=== PATIENT | female | born 1930 | race Caucasian/White ===

== ENCOUNTER 2017-08-02 12:47 | Outpatient (RCR) | payer MEDICARE, OTHER ==
[2014-06-02 09:06] VITALS: BMI 27.6
[2017-07-05 13:14] VITALS: BP 127/49
[2017-07-05] MEDS: NS(*) 0.9% 100 ML BAG 100 ML IVPB PRN (13:30)
[2017-07-05 13:45] LABS: PLATELET COUNT, AUTOMATED 255 K/uL (150-450)
[2017-07-05] MEDS: LIDOCAINE/SOD BICARB 8.4% SYR ID PRN (13:46)
[~2017-08-02 12:47] MED LIST: ABAT125S SQ; ABATACEPT 250 MG SDV 750 MG in NS(*) 0.9% 100 ML BAG 100 ML IVPB ONE; ACET500T68 PO; ALL300 PO; ASPI-715 PO; ASPI81TA94 PO; ATE50 PO; ATOR40TA69 PO; BUME0.5T PO; BUME0.5T3 PO; BUPR-472 PO; BUS5 PO; CAL600 PO; CALC-965 PO; CALC1TAB85; CALCITONIN SALMON; CELE-1 PO; CHOL400C10 PO; CIT20 PO; CITA-141 PO; CITA-157 PO; CLOP75TA43 PO; CYA1000 PO; CYAN250L PO; CYCL10TA29 PO; DEXTROSE 5%(*) 100 ML BAG 100 ML IVPB PRN; DUL30 PO; ESC10 PO; EZE10 PO; EZET10TA41 PO; FOL1 PO; GEM600 PO; HYD200 PO; HYDR2TAB74 PO; LEV75 PO; LID5T TP; LISI-368 PO; LISI2.5T60 PO; LOR5 PO; LOR5/325 PO; LORA-630 PO; MELA1TAB15 PO; METF-410 PO; METFORMIN PO; METH2.5T43 PO; METXR500 PO; MIRT-22 PO; MULT-1203 PO; MULT-1335 PO; NIT100 PO; OCU PO; OMEP-125 PO; OMEP-137 PO; OMEP-153 PO; OMEP10CA40 PO; OMEP40CA48 PO; ONDA4TAB97 PO; OXYC5TAB38 PO; PER PO; PHENERGAN; POTA75TA2 PO; PRE20 PO; PRIM50TA42 PO; Polyethylene Glycol PO; RISE150T3 PO; SPIR25TA78 PO; SUC1 PO; TRA50 PO; TRAM-627 PO; VITA1CAP46 PO; osteoporosis med
[2017-08-02 13:13] LABS: PLATELET COUNT, AUTOMATED 282 K/uL (150-450)
[2017-08-02 13:41] VITALS: BP 135/45
[2017-08-02] MEDS: LIDOCAINE/SOD BICARB 8.4% SYR ID PRN (13:53)
[2017-08-02] MEDS: NS(*) 0.9% 100 ML BAG 100 ML IVPB PRN (13:54)
[2017-08-02] MEDS ORDERED: ABATACEPT 250 MG SDV 750 MG in NS(*) 0.9% 100 ML BAG 100 ML IVPB ONE (14:15)
[2017-08-03] MEDS ORDERED: MIRT-22 PO (17:12)
[2017-08-25] MEDS ORDERED: ATOR40TA69 PO ×2 (09:55→09:58)
== END 2017-08-28 ==
LOC: SPU 12:47
PROVIDERS: ATTEND Family Medicine
DX: M06.9 Rheumatoid arthritis, unspecified (principal); R06.00 Dyspnea, unspecified
CPT/HCPCS: 83735; 85025; 85027; 85651; 96365; J0129; J7050; 82040; 82247; 82310; 82374; 82435; 82565; 82947; 84075; 84132; 84155; 84295; 84450; 84460; 84520

== ENCOUNTER 2017-08-29 14:00 | Outpatient (RCR) | payer MEDICARE, OTHER ==
[2014-06-02 09:06] VITALS: BMI 27.6
[2017-06-01 16:02] VITALS: BP 112/60
[2017-06-01 16:04] VITALS: BP 132/64
--- NOTE | 2017-06-01 16:56 | CARDIAC REHAB PLAN OF CARE ---
Physician: Misael HUIZAR Patient is being seen: Won Bose Medical Diagnosis: NSTEMI, Stent x 4 Date of Initial Evaluation: 06/01/2017 SHORT TERM GOALS Short Term Goals Due Date: 07/01/17 Short Term Goals: 86 year old female comes to cardiac rehab after a NSTEMI (Apr 12, 2017) and total of 4 stents placed. Patient medical hx includes type II diabetes, arthritis, right knee replacement. Patient presents as alert and oriented with a resting SPO2 at 90% on room air, and the rn cardiac shows a NSR without ectopy and rates in the 60's. Patient walked on a treadmill for 7 minutes at 1.6 MPH, SPO2 levels dropped to 81% on room air and the rn cardiac showed ST without ectopy and a rate of 103. Short terms goals for the patient are consistency of cardio exercise of at least 150 minutes each week, along with weight resistance exercise at least twice a week. Patient will adjust diet to follow a diabetic and heart healthy diet for meals. Short Term Goals Met: Short Term Goals Not Met Due To: BRANCH CONTROLLER GOALS Human Projectile Goal Due Date: 08/01/17 Usp Goals: exterminator termite goals for the patient are to remain consistent with cardio exercise each week achieving that 150 minute minimum and add in weight resistance at least twice a week. Patient will also remain consistent with healthy nutritional intake limiting sugars and refined carbohydrates. Human Projectile Goals Met: Usp Goals Not Met Due To: PATIENT'S GOALS Patient Goals Due Date: 07/01/17 Patient Goals: Patient goals are to get better, healthier, and be able to remain active. Patient would like to return to a water exercise class. Patient Goals Met: Patient Goals Not Met Due To: Cardiac Rehabilitation Plan of Care Comment: Cardiac rehab staff will monitor, record, and evaluate vitals, ECG, and exercise results to provide the best plan of care throughout the 36 visit phase II program. CR staff will educate and motivate the patient during visits for rehab. KEHINDE
[2017-06-03 16:43] VITALS: BP 122/58
[2017-06-03 16:44] VITALS: BP 122/64
[2017-06-06 16:57] VITALS: BP 130/58
[2017-06-06 16:58] VITALS: BP 100/62
[2017-06-10 16:38] VITALS: BP_SYST 128; BP_SYST 138; BP_DIAS 58; BP_DIAS 60
[2017-06-13 15:50] VITALS: BP 146/58
[2017-06-13 15:51] VITALS: BP 136/60
[2017-06-15 16:35] VITALS: BP 138/54
[2017-06-15 16:36] VITALS: BP 122/58
[2017-06-20 17:03] VITALS: BP 120/58
[2017-06-20 17:05] VITALS: BP 126/58
[2017-06-22 16:23] VITALS: BP 132/60
[2017-06-22 16:24] VITALS: BP 130/60
[2017-06-29 16:26] VITALS: BP_SYST 116; BP_SYST 134; BP_DIAS 52; BP_DIAS 58
[2017-07-01 17:41] VITALS: BP 122/60
[2017-07-01 17:43] VITALS: BP 122/58
--- NOTE | 2017-07-01 17:58 | CARDIAC REHAB PLAN OF CARE ---
Physician: Misael HUIZAR Patient is being seen: Won Bose Medical Diagnosis: NSTEMI, Stent x 4 Date of Initial Evaluation: 06/01/2017 \ SHORT TERM GOALS Short Term Goals Due Date: 08/01/17 Short Term Goals: 86 year old female comes to cardiac rehab after a NSTEMI (Apr 12, 2017) and total of 4 stents placed. Patient medical hx includes type II diabetes, arthritis, right knee replacement. Patient presents as alert and oriented with a resting SPO2 at 90% on room air, and the communications intern shows a NSR without ectopy and rates in the 60's. Patient walked on a treadmill for 7 minutes at 1.6 MPH, SPO2 levels dropped to 81% on room air and the communications intern showed ST without ectopy and a rate of 103. Short terms goals for the patient are consistency of cardio exercise of at least 150 minutes each week, along with weight resistance exercise at least twice a week. Patient will adjust diet to follow a diabetic and heart healthy diet for meals. Short Term Goals Met: Patient has made 10 visits for cardiac rehab and tolerates 35 minutes of cardio exercise in the range of 2.0-2.5 METs, followed by weight resistance exercise. During exercise SPO2 levels are maintained in the 90's on 2 liters of O2 by cannula, and the communications intern shows ST without ectopy and rates of 102-114. Short Term Goals Not Met Due To: DATA DEVELOPER GOALS Childcare Worker Goal Due Date: 08/31/17 Childcare Worker Goals: halfway goals for the patient are to remain consistent in achieving at least 150 minutes of cardio exercise each week and weight resistance exercise at least twice a week. Patient also needs to remain consistent in eating diabetic and heart healthy type foods. Childcare Worker Goals Met: Jail Goals Not Met Due To: PATIENT'S GOALS Patient Goals Due Date: 08/01/17 Patient Goals: Patient goals are to improve cardiac and overall health and to be able to remain active. Patient would like to return to water exercise class. Patient Goals Met: Patient Goals Not Met Due To: Cardiac Rehabilitation Plan of Care Comment: Cardiac rehab staff will continue to monitor, record, and evaluate vitals, ECG, and exercise results to provide the best plan of care for the patient throughout the 36 visit phase II program. CR staff will motivate and educate the patient during visits for rehab. KEHINDE
[2017-07-06 17:18] VITALS: BP 118/56
[2017-07-06 17:19] VITALS: BP 132/58
[2017-07-09 16:22] VITALS: BP_SYST 138; BP_SYST 140; BP_DIAS 60
[2017-07-11 16:18] VITALS: BP_SYST 130; BP_SYST 134; BP_DIAS 56; BP_DIAS 58
[2017-07-15 17:45] VITALS: BP 114/54
[2017-07-15 17:46] VITALS: BP 120/46
[2017-07-18 17:28] VITALS: BP 124/54
[2017-07-18 17:36] VITALS: BP 110/52
[2017-07-22 14:37] VITALS: BP 138/54
[2017-07-22 14:38] VITALS: BP 140/56
[2017-07-25 16:27] VITALS: BP_SYST 128; BP_SYST 130; BP_DIAS 54; BP_DIAS 62
[2017-07-27 16:35] VITALS: BP 140/72
[2017-07-27 16:36] VITALS: BP 138/66
[2017-07-29 16:45] VITALS: BP 112/54
[2017-07-29 16:46] VITALS: BP 117/58
[2017-08-01 16:43] VITALS: BP 138/62
[2017-08-01 16:44] VITALS: BP 132/62
--- NOTE | 2017-08-01 17:06 | CARDIAC REHAB PLAN OF CARE ---
Physician: Misael HUIZAR Patient is being seen: Won Bose Medical Diagnosis: NSTEMI, Stent x 4 Date of Initial Evaluation: June 01, 2017 : SHORT TERM GOALS Short Term Goals Due Date: 08/31/17 Short Term Goals: 87 year old female comes to cardiac rehab after a NSTEMI (Apr 12, 2017) and total of 4 stents placed. Patient medical hx includes type II diabetes, arthritis, right knee replacement. Patient presents as alert and oriented with a resting SPO2 at 90% on room air, and the monitoring manager shows a NSR without ectopy and rates in the 60's. Patient walked on a treadmill for 7 minutes at 1.6 MPH, SPO2 levels dropped to 81% on room air and the monitoring manager showed ST without ectopy and a rate of 103. Short terms goals for the patient are consistency of cardio exercise of at least 150 minutes each week, along with weight resistance exercise at least twice a week. Patient will adjust diet to follow a diabetic and heart healthy diet for meals. Short Term Goals Met: Patient has made 20 visits for cardiac rehab and tolerates 35 minutes of cardio exercise in the range of 2.0-2.5 METs, followed by weight resistance exercise. During exercise SPO2 levels are maintained in the 90's on 2 liters of O2 by cannula, and the monitoring manager shows ST without ectopy and rates of 102-119. Short Term Goals Not Met Due To: COMMUNITY SPORTS COORDINATOR GOALS Correction Goal Due Date: 09/29/17 Rn Nicu Goals: penitentiary goals for the patient are to remain consistent in achieving at least 150 minutes of cardio exercise each week and weight resistance exercise at least twice a week. Patient also needs to remain consistent in eating diabetic and heart healthy type foods. Rn Nicu Goals Met: Patient has increased duration and intensity of exercise. Rn Nicu Goals Not Met Due To: PATIENT'S GOALS Patient Goals Due Date: 08/31/17 Patient Goals: penitentiary goals for the patient are to remain consistent in achieving at least 150 minutes of cardio exercise each week and weight resistance exercise at least twice a week. Patient also needs to remain consistent in eating diabetic and heart healthy type foods. Patient Goals Met: Patient Goals Not Met Due To: Cardiac Rehabilitation Plan of Care Comment: Cardiac rehab staff will continue to monitor, record, and evaluate vitals, ECG, and exercise results to provide the best plan of care for the patient throughout the 36 visit phase II program. CR staff will motivate and educate the patient during visits for rehab. KEHINDE
[2017-08-05 16:32] VITALS: BP_SYST 122; BP_SYST 130; BP_DIAS 56
[2017-08-08 16:27] VITALS: BP 140/60
[2017-08-08 16:28] VITALS: BP 130/58
[2017-08-10 15:25] VITALS: BP 140/56
[2017-08-10 15:26] VITALS: BP 136/60
[2017-08-12 16:40] VITALS: BP 108/48
[2017-08-12 16:41] VITALS: BP 120/60
[2017-08-17 18:07] VITALS: BP_SYST 108; BP_SYST 118; BP_DIAS 58; BP_DIAS 60
[2017-08-19 16:41] VITALS: BP_SYST 118; BP_SYST 132; BP_DIAS 56; BP_DIAS 60
[2017-08-22 15:50] VITALS: BP_SYST 128; BP_SYST 134; BP_DIAS 54; BP_DIAS 58
[2017-08-24 16:45] VITALS: BP 148/60
[2017-08-24 16:46] VITALS: BP 142/58
[2017-08-26 17:16] VITALS: BP 140/58
[2017-08-26 17:17] VITALS: BP 130/60
[~2017-08-29 14:00] MED LIST changes: -ABATACEPT 250 MG SDV 750 MG in NS(*) 0.9% 100 ML BAG 100 ML IVPB ONE; -DEXTROSE 5%(*) 100 ML BAG 100 ML IVPB PRN
[2017-08-29 16:21] VITALS: BP 124/62
[2017-08-29 16:22] VITALS: BP 104/52
== END 2017-08-30 ==
LOC: CARD 14:00
PROVIDERS: ATTEND Family Medicine
DX: I25.2 Old myocardial infarction (principal); Z95.5 Presence of coronary angioplasty implant and graft; E11.9 Type 2 diabetes mellitus without complications; M06.9 Rheumatoid arthritis, unspecified; Z96.651 Presence of right artificial knee joint; M25.551 Pain in right hip
CPT/HCPCS: 93798

== ENCOUNTER → 2017-09-06 | Outpatient (REF) | payer MEDICARE, OTHER ==
[2014-06-02 09:06] VITALS: BMI 27.6
== END ==
LOC: ZZSENDIN 12:00
PROVIDERS: ATTEND Family Medicine
DX: C44.41 Basal cell carcinoma of skin of scalp and neck (principal)
CPT/HCPCS: 88305

== ENCOUNTER 2017-09-21 14:00 | Outpatient (RCR) | payer MEDICARE, OTHER ==
[2014-06-02 09:06] VITALS: BMI 27.6
[2017-08-31 17:28] VITALS: BP 132/58
[2017-08-31 17:30] VITALS: BP 118/70
[2017-09-02 16:32] VITALS: BP 130/50
[2017-09-12 17:39] VITALS: BP 118/58
[2017-09-12 17:40] VITALS: BP 110/54
[2017-09-14 16:50] VITALS: BP 128/62
[2017-09-14 16:51] VITALS: BP 124/62
[2017-09-19 15:26] VITALS: BP 132/52
[2017-09-19 15:28] VITALS: BP 124/60
[2017-09-21 16:43] VITALS: BP 132/70
[2017-09-21 16:44] VITALS: BP 126/66
== END 2017-09-21 18:00 | disposition home or self-care (01) ==
LOC: CARD 14:00
PROVIDERS: ATTEND Family Medicine
DX: I25.2 Old myocardial infarction (principal); Z95.5 Presence of coronary angioplasty implant and graft; E11.9 Type 2 diabetes mellitus without complications; M06.9 Rheumatoid arthritis, unspecified; Z96.651 Presence of right artificial knee joint; M25.551 Pain in right hip
CPT/HCPCS: 93798

== ENCOUNTER → 2017-09-27 | Outpatient (REF) | payer MEDICARE, OTHER ==
[2014-06-02 09:06] VITALS: BMI 27.6
== END ==
LOC: ZZSENDIN 12:00
PROVIDERS: ATTEND Family Medicine
DX: C44.41 Basal cell carcinoma of skin of scalp and neck (principal)
CPT/HCPCS: 88305

== ENCOUNTER 2017-11-22 12:41 | Outpatient (RCR) | payer MEDICARE, OTHER ==
[2014-06-02 09:06] VITALS: BMI 27.6
[2017-08-30 13:02] VITALS: BP 153/52
[2017-08-30] MEDS: LIDOCAINE/SOD BICARB 8.4% SYR ID PRN (13:15)
[2017-08-30] MEDS: NS(*) 0.9% 100 ML BAG 100 ML IVPB PRN (13:18)
[2017-08-30 13:28] LABS: PLATELET COUNT, AUTOMATED 283 K/uL (150-450)
[2017-09-27 12:53] VITALS: BP 152/57
[2017-09-27 13:10] LABS: PLATELET COUNT, AUTOMATED 278 K/uL (150-450)
[2017-10-25 13:27] VITALS: BP 125/58
[2017-10-25 13:36] LABS: PLATELET COUNT, AUTOMATED 244 K/uL (150-450)
[2017-10-25 14:19] VITALS: BP 142/93
[~2017-11-22 12:41] MED LIST changes: +ABATACEPT 250 MG SDV 750 MG in NS(*) 0.9% 100 ML BAG 100 ML IVPB ONE; +DEXTROSE 5%(*) 100 ML BAG 100 ML IVPB PRN; -METF-410 PO; +METF-411 PO
[2017-11-22 12:46] VITALS: BP 139/56
[2017-11-22] MEDS ORDERED: ABATACEPT 250 MG SDV 750 MG in NS(*) 0.9% 100 ML BAG 100 ML IVPB ONE (12:55)
[2017-11-22] MEDS: LIDOCAINE/SOD BICARB 8.4% SYR ID PRN (13:00)
[2017-11-22] MEDS: NS(*) 0.9% 100 ML BAG 100 ML IVPB PRN (13:00)
[2017-11-22 13:06] LABS: PLATELET COUNT, AUTOMATED 223 K/uL (150-450)
== END 2017-11-27 ==
LOC: SPU 12:41
PROVIDERS: ATTEND Family Medicine
DX: M06.9 Rheumatoid arthritis, unspecified (principal); R06.00 Dyspnea, unspecified
CPT/HCPCS: 85025; 85651; 96365; 96366; J0129; J7050; 82040; 82247; 82310; 82374; 82435; 82565; 82947; 84075; 84132; 84155; 84295; 84450; 84460; 84520; 88305

== ENCOUNTER → 2017-12-08 | Outpatient (CLI) | payer MEDICARE, OTHER ==
[2014-06-02 09:06] VITALS: BMI 27.6
[~2017-12-08] MED LIST changes: -ABATACEPT 250 MG SDV 750 MG in NS(*) 0.9% 100 ML BAG 100 ML IVPB ONE; -DEXTROSE 5%(*) 100 ML BAG 100 ML IVPB PRN
--- NOTE | 2017-12-08 14:18 | RADIOLOGY IMAGING REPORT ---
FACILITY: [facility] PATIENT NAME: Mindy Goldstein : 1930 MR: [id number] V: [id number] EXAM DATE: ORDERING PHYSICIAN: DUKE PHELPS TECHNOLOGIST: Location: [facility] Patient: Mindy Goldstein : 1930 Visit/Account:[id number] Date of Sevice: 12/08/2017 DEXA Scan Clinical history: Postmenopausal osteoporosis. Comparison: DEXA scan from 11/05/2014. LUMBAR SPINE: The bone mineral density (BMD) measured from L1-L4 correlates with a Z-score of 3.8 and a T-score of 2.1 which is Normal as defined by the World Health Organization. The corresponding risk of fracture in the lumbar spine is Not increased compared with a young adult reference population. This value mcgee s increase by 0.1 % since the prior study. More than 5% change is considered significant. HIP: Bone mineral density (BMD) measured in the LEFT total hip region correlates with a Z-score 1.7 and a T-score of -0.5 which is normal as defined by the World Health Organization. The corresponding risk of fracture in the hip is 1-2 t imes increased compared to a young adult reference population. This value has decrease by 0.3 % since the prior study. More than 5% change is considered significant. T score left femoral neck -1 Bone mineral density (BMD) measured in the Femoral Neck region measures 0.895 g/cm?. IMPRESSION: 1. Lumbar spine: Normal. There has been 0.1% increase in the bone mineral density since the previou s exam. 2. Left Total Hip: Normal. There has been 0.3% decrease in the bone mineral density since the previ ous exam. 3. Femoral Neck: Bone Mineral Density is 0.895 g/cm? The next DEXA scan of this patient should include the following sites: L1-L4 and the left hip. FRAX? WHO Fracture Risk Assessment Tool link: <http://www.shef.ac.uk/FRAX/tool.jsp?locationValue=9> PLEASE NOTE: 1) The World Health Organization defines low BMD as follows: T-score Normal > -1 Osteopenia < -1 and > -2.5 Osteoporosis < -2.5 without fractures Established osteoporosis < -2.5 with fractures 2) In general, you may wish to consider: Diagnosis Treatment Follow-up DEXA Normal BMD Prevention 2-3 years Osteopenia Prevention/therapy 1-2 years Osteoporosis Therapy Yearly 3) Fracture risk estimated from the T-score is more accurate for vertebral fractures (often spontane ous) than for hip fractures. Report Dictated By: Alysia Doherty MD at 12/08/2017 2:13 PM Report E-Signed By: Alysia Doherty MD at 12/08/2017 2:15 PM WSN:[id number]
== END ==
LOC: RAD 13:05
PROVIDERS: ATTEND Internal Medicine Rheumatology
DX: Z13.820 Encounter for screening for osteoporosis (principal); M81.0 Age-related osteoporosis without current pathological fracture
CPT/HCPCS: 77080

== ENCOUNTER 2018-02-27 17:56 | Emergency (ER) | payer MEDICARE, OTHER ==
[2014-06-02 09:06] VITALS: Wt 69.4 kg
--- NOTE | 2018-02-27 18:16 | ER Report ---
History and Physical Time Seen By MD: 18:11 HPI/ROS CHIEF COMPLAINT: Chest pain HISTORY OF PRESENT ILLNESS: This is an 87-year-old female who presents to the emergency department with her daughter for chest pain. Patient had an [place] approximately 10 months ago had 4 stents placed and has been following Dr. Barbosa in [place]. Patient states that the day at about 2:00 she developed some chest discomfort which radiated up into her neck bilaterally. She also had a rapid heart rate which he checked it at home was in the 140s, she called her daughter and her daughter picked her up and her daughter also stated that her heart rate by pulse oximetry and palpation was fluctuating between 150's-160's. No nausea or vomiting, no shortness of breath no fevers or chills. REVIEW OF SYSTEMS: Constitutional: No fever, no chills. Eyes: No discharge. ENT: No sore throat. Cardiovascular: As above. Respiratory: No cough, no shortness of breath. Gastrointestinal: No abdominal pain, no vomiting. Genitourinary: No hematuria. Musculoskeletal: No back pain. Skin: No rashes. Neurological: No headache. Allergies: Coded Allergies: Penicillins (Verified Allergy, Mild, 02/27/18) Sulfa (Sulfonamide Antibiotics) (Verified Allergy, Mild, 02/27/18) codeine (Verified Allergy, Mild, 02/27/18) iodine (Verified Allergy, Mild, 02/27/18) Uncoded Allergies: NARCOTICS (Adverse Reaction, Unknown, 02/27/18) Home Meds Active Scripts Atorvastatin Calcium (ATORVASTATIN CALCIUM) 40 Mg Tablet, 1 TAB PO HS, #30 TAB Prov:ADRIANA DERAS MD 08/25/17 Mirtazapine (MIRTAZAPINE) 15 Mg Tablet, 0.25 TAB PO QHS for 90 Days, #45 TAB Prov:ADRIANA DERAS MD 08/03/17 Lisinopril (LISINOPRIL) 2.5 Mg Tablet, 1 TAB PO DAILY, #90 TAB 4 Refills Prov:ADRIANA DERAS MD 04/04/17 Reported Medications Cyanocobalamin (Vitamin B-12) (VITAMIN B-12) 1,000 Mcg Tablet, 1 TAB PO DAILY 08/02/17 Clopidogrel Bisulfate (PLAVIX) 75 Mg Tablet, 1 TAB PO QDAY, TAB 08/02/17 Metformin Hcl (METFORMIN HCL) 500 Mg Tablet, 0.5 TAB PO DAILY 08/02/17 Aspirin (ASPIRIN) 81 Mg Tab.chew, 1 TAB.CHEW PO QDAY 08/02/17 Citalopram Hydrobromide (CITALOPRAM HBR) 40 Mg Tablet, 0.5 TAB PO DAILY 04/01/17 Cholecalciferol (Vitamin D3) (VITAMIN D) 400 Unit Capsule, 500 UNIT PO DAILY, CAPSULE 02/24/17 Acetaminophen (TYLENOL EXTRA STRENGTH) 500 Mg Tablet, 1 TAB PO HS PRN for PAIN 02/24/17 Risedronate Sodium (Risedronate Sodium) 150 Mg Tablet, 1 TAB PO Q4WK 02/24/17 Calcium Carbonate/Vitamin D3 (Caltrate 600 + D Soft Chew Tab) 1 Each Tab.chew 03/09/15 Abatacept (ORENCIA) 125 Mg/1 Ml Disp.syrin, 125 MG SQ monthly 06/04/14 Primidone (Primidone) 50 Mg Tablet, 1 TAB PO QHS 03/07/12 Folic Acid (Folic Acid) 1 Mg Tab, 0.4 MG PO QDAY, 0 Refills 10/26/10 Levothyroxine Sodium (Synthroid) 0.075 Mg Tab, 1 TAB PO DAILY 10/26/10 Past Medical/Surgical History The patient has a past medical and surgical history of TIA, an STEMI, angina, gallbladder disease, rheumatoid arthritis, osteoarthritis, pelvis fracture, left wrist fracture, back pain, arthritis, 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 Reviewed Nurses Notes: Yes Hx Smoking: No Smoking Status: Never Smoker Exposure to Second Hand Smoke?: No Hx Substance Use Disorder: No Hx Alcohol Use: No Constitutional Vital Sign - Last 24 Hours 02/27/18 02/27/18 02/27/18 02/27/18 18:10 18:14 18:26 18:30 Temp 98.3 Pulse 78 70 Resp 18 17 B/P (MAP) 153/84 153/84 (107) 132/94 (107) Pulse Ox 91 88 O2 Delivery Room Air Physical Exam General Appearance: The patient is alert, has no immediate need for airway protection and no signs of toxicity, has an essential tremor. Eyes: Pupils equal and round no pallor or injection. ENT, Mouth: Mucous membranes are moist. Respiratory: There are no retractions, lungs are clear to auscultation. Cardiovascular: Regular rate and rhythm, no murmurs, clicks or rubs. Heart rate in the 70s and 80s. Gastrointestinal: Abdomen is soft and non tender, no masses, bowel sounds normal. Neurological: Alert and oriented 4. Moving all extremities. Following all commands. No focal neuro deficits. Skin: Warm and dry, no rashes. Musculoskeletal: Neck is supple non tender. Extremities are nontender, nonswollen and have full range of motion. DIFFERENTIAL DIAGNOSIS: After history and physical exam differential diagnosis was considered for chest pain including but not limited to myocardial ischemia, pericarditis pulmonary embolus, chest wall pain, pleural inflammation and pulmonary infectious causes. Medical Decision Making Data Points Result Diagram: 02/27/18 1820 02/27/18 1820 Laboratory Hematology Test 02/27/18 18:20 02/27/18 21:05 Red Blood Count 5.03 M/uL (4.17-5.56) Mean Corpuscular Volume 85.2 fL (80.0-96.0) Mean Corpuscular Hemoglobin 29.1 pg (26.0-33.0) Mean Corpuscular Hemoglobin Concent 34.2 g/dL (32.0-36.0) Red Cell Distribution Width 19.3 % (11.5-14.5) Mean Platelet Volume 7.2 fL (7.2-11.1) Neutrophils (%) (Auto) 54.3 % (39.4-72.5) Lymphocytes (%) (Auto) 33.5 % (17.6-49.6) Monocytes (%) (Auto) 9.1 % (4.1-12.4) Eosinophils (%) (Auto) 2.2 % (0.4-6.7) Basophils (%) (Auto) 0.9 % (0.3-1.4) Nucleated RBC Relative Count (auto) 0.1 /100WBC Neutrophils # (Auto) 2.2 K/uL (2.0-7.4) Lymphocytes # (Auto) 1.3 K/uL (1.3-3.6) Monocytes # (Auto) 0.4 K/uL (0.3-1.0) Eosinophils # (Auto) 0.1 K/uL (0.0-0.5) Basophils # (Auto) 0.0 K/uL (0.0-0.1) Nucleated RBC Absolute Count (auto) 0.00 K/uL Sodium Level 135 mmol/L (137-145) Potassium Level 4.1 mmol/L (3.5-5.0) Chloride Level 98 mmol/L (98-107) Carbon Dioxide Level 29 mmol/L (22-31) Blood Urea Nitrogen 22 mg/dl (7-18) Creatinine 0.70 mg/dl (0.52-1.04) Glomerular Filtration Rate Calc > 60.0 Random Glucose 204 mg/dl (75-110) Calcium Level 9.4 mg/dl (8.4-10.2) Total Bilirubin 0.3 mg/dl (0.2-1.3) Aspartate Amino Transf (AST/SGOT) 29 U/L (0-35) Alanine Aminotransferase (ALT/SGPT) 33 U/L (0-56) Alkaline Phosphatase 64 U/L (0-126) Total Protein 7.1 g/dl (6.3-8.2) Albumin 4.2 g/dl (3.5-5.0) Troponin I < 0.012 ng/ml Chemistry Test 02/27/18 18:20 02/27/18 21:05 White Blood Count 4.0 k/uL (4.5-11.0) Red Blood Count 5.03 M/uL (4.17-5.56) Hemoglobin 14.6 g/dL (12.0-16.0) Hematocrit 42.8 % (34.0-47.0) Mean Corpuscular Volume 85.2 fL (80.0-96.0) Mean Corpuscular Hemoglobin 29.1 pg (26.0-33.0) Mean Corpuscular Hemoglobin Concent 34.2 g/dL (32.0-36.0) Red Cell Distribution Width 19.3 % (11.5-14.5) Platelet Count 247 K/uL (150-450) Mean Platelet Volume 7.2 fL (7.2-11.1) Neutrophils (%) (Auto) 54.3 % (39.4-72.5) Lymphocytes (%) (Auto) 33.5 % (17.6-49.6) Monocytes (%) (Auto) 9.1 % (4.1-12.4) Eosinophils (%) (Auto) 2.2 % (0.4-6.7) Basophils (%) (Auto) 0.9 % (0.3-1.4) Nucleated RBC Relative Count (auto) 0.1 /100WBC Neutrophils # (Auto) 2.2 K/uL (2.0-7.4) Lymphocytes # (Auto) 1.3 K/uL (1.3-3.6) Monocytes # (Auto) 0.4 K/uL (0.3-1.0) Eosinophils # (Auto) 0.1 K/uL (0.0-0.5) Basophils # (Auto) 0.0 K/uL (0.0-0.1) Nucleated RBC Absolute Count (auto) 0.00 K/uL Glomerular Filtration Rate Calc > 60.0 Calcium Level 9.4 mg/dl (8.4-10.2) Total Bilirubin 0.3 mg/dl (0.2-1.3) Aspartate Amino Transf (AST/SGOT) 29 U/L (0-35) Alanine Aminotransferase (ALT/SGPT) 33 U/L (0-56) Alkaline Phosphatase 64 U/L (0-126) Total Protein 7.1 g/dl (6.3-8.2) Albumin 4.2 g/dl (3.5-5.0) Troponin I < 0.012 ng/ml EKG/Imaging EKG Interpretation 12 lead EKG: Time of EKG 1820. Rhythm: Normal sinus rhythm, ventricular rate 70 bpm. Meridian: normal QRS: normal ST segments: No ST depression or elevation identified. When compared to the 04/23/2017 EKG. Similar however there are some slight variances in the V leads the current EKG has a wandering baseline with artifact. 12 lead EKG: Time of EKG 2041. Rhythm: Sinus bradycardia, ventricular rate 47 bpm. Meridian: normal QRS: normal ST segments: No ST depression or elevation identified. No significant changes from the initial EKG other than rate and improved baseline and artifact from previous EKG. Imaging Location: [facility] - [place], [place] Patient: Mindy Goldstein : 1930 Visit/Account:[id number] Date of Sevice: 02/27/2018 Technique: CHEST PA AND LAT HISTORY: Chest Pain Comparison studies: Chest radiograph 05/03/2017 04/12/2017 FINDINGS: No acute airspace consolidation. Left midlung and left basilar scarring as well as right basilar scarring is unchanged. The cardiomediastinal silhouette is also unchanged. Compression deformities are again visualized within the lower thoracic spine. IMPRESSION: 1. No acute cardiopulmonary process. 2. Chronic lung findings. Report Dictated By: Larry Tuttle DO at 02/27/2018 7:12 PM Report E-Signed By: Larry Tuttle DO at 02/27/2018 7:17 PM WSN:[id number] ED Course/Re-evaluation Clinical Indication for ER IV: Hydration, IV Access ED Course The patient was admitted to a room. A history physical were obtained. Differential diagnoses were considered. An IV was started. A CBC, CMP, troponin, EKG were obtained. CBC unremarkable, blood sugar 204. EKG normal sinus rhythm, negative troponin. A 500 mL normal saline bolus was given. 1 inch of Nitropaste was applied. 324 mg aspirin. The patient remained pain-free and no tachycardia while in the emergency department. Repeat EKG and troponin negative. Negative chest x-ray. I did review these results with the patient and her daughter. I did explain to the patient that we've ruled out any concerning cardiac damage at this point, however I'm not entirely sure what caused the rapid heart rate or chest pain therefore my suggestion is a Holter monitor and follow up. Patient is agreeable. The patient does have a follow-up appointment with her renewal specialist Dr. Barbosa from [place] in the next 1-2 weeks. The patient had no other questions or concerns at this time and was discharged home pain-free. Patient was ac companied by her daughter. 02/27/2018 7:15:06 pm the patient is sitting at the bedside, she states that her pain has resolved. I did review the laboratory studies with the patient as well as her EKG. I did explain to her that I like to keep her here for an additional repeat troponin and EKG. Patient is agreeable with this plan. 02/27/2018 9:17:38 pm I did review the 2nd EKG with the patient, which was unchanged other than rate, did explain to her that I'm waiting for the repeat troponin and we will make a decision from this point forward. Decision to Disposition Date: Feb 27, 2018 Decision to Disposition Time: 22:22 Depart Departure Latest Vital Signs Vital Signs Date Time Temp Pulse Resp B/P (MAP) Pulse Ox O2 Delivery O2 Flow Rate FiO2 02/27/18 18:30 132/94 (107) 02/27/18 18:26 70 17 88 02/27/18 18:10 98.3 Room Air Impression: Primary Impression: Chest pain of unknown etiology Condition: Improved Disposition: HOME OR SELF-CARE Referrals: EUFEMIA ROMERO DO (PCP) 1 Week DEONTE BARBOSA MD 2 Weeks Patient Instructions: Chest Pain (ED) Additional Instructions: Keep the monitor on for the next 24 hours. Keep her appointment with Dr. Barbosa. Follow-up with Dr. Romero within the next week for reevaluation. Drink plenty of water. Get plenty of rest. Return to the emergency department for any other concerns or worsening symptoms. PENNIE ALCANTAR MANAGER PSYCHOLOGY-BC Feb 27, 2018 18:17
[2018-02-27] MEDS ORDERED: NITROGLYCERIN OINT 1 GM PKT TP ONE (18:25)
[2018-02-27] MEDS ORDERED: NS(*) 0.9% 500 ML BAG 500 ML IV ONE (18:25)
[2018-02-27] MEDS ORDERED: ASPIRIN 81 MG CHEW PO ONE (18:25)
--- NOTE | 2018-02-27 18:31 | EKG ---
FACILITY: PATIENT NAME: LUCIO AQUINO : [id number] MR: [id number] V: [id number] EXAM DATE: ORDERING PHYSICIAN: PENNIE ALCANTAR TECHNOLOGIST: HAZEL Test Reason : CHEST PAIN Blood Pressure : / mmHG Vent. Rate : 078 BPM Atrial Rate : 078 BPM P-R Int : 154 ms QRS Dur : 072 ms QT Int : 394 ms P-R-T Axes : 059 056 042 degrees QTc Int : 449 ms Normal sinus rhythm Normal ECG When compared with ECG of 23-APR-2017 00:03, Vent. rate has increased BY 28 BPM T wave inversion no longer evident in Anterior leads Confirmed by Dru Gonzalez ([id number]) on 02/28/2018 7:45:18 AM Referred By: Confirmed By:Dru Walters
[2018-02-27 18:34] LABS: PLATELET COUNT, AUTOMATED 247 K/uL (150-450)
--- NOTE | 2018-02-27 19:21 | RADIOLOGY IMAGING REPORT ---
FACILITY: [facility] [place] PATIENT NAME: Mindy Goldstein : 1930 MR: [id number] V: [id number] EXAM DATE: ORDERING PHYSICIAN: PENNIE ALCANTAR TECHNOLOGIST: Location: [facility] Patient: Mindy Goldstein : 1930 Visit/Account:[id number] Date of Sevice: 02/27/2018 Technique: CHEST PA AND LAT HISTORY: Chest Pain Comparison studies: Chest radiograph 05/03/2017 04/12/2017 FINDINGS: No acute airspace consolidation. Left midlung and left basilar scarring as well as right ba silar scarring is unchanged. The cardiomediastinal silhouette is also unchanged. Compression deformit ies are again visualized within the lower thoracic spine. IMPRESSION: 1. No acute cardiopulmonary process. 2. Chronic lung findings. Report Dictated By: Larry Tuttle DO at 02/27/2018 7:12 PM Report E-Signed By: Larry Tuttle DO at 02/27/2018 7:17 PM [id number]
[2018-02-27 22:15] VITALS: BP 132/57
--- NOTE | 2018-02-27 22:28 | EKG ---
FACILITY: [facility] PATIENT NAME: LUCIO AQUINO : [id number] MR: [id number] V: [id number] EXAM DATE: ORDERING PHYSICIAN: PENNIE ALCANTAR TECHNOLOGIST: CHRISTIAN Test Reason : CHEST PAIN Blood Pressure : / mmHG Vent. Rate : 047 BPM Atrial Rate : 047 BPM P-R Int : 160 ms QRS Dur : 074 ms QT Int : 464 ms P-R-T Axes : 056 059 043 degrees QTc Int : 410 ms Marked sinus bradycardia Abnormal ECG When compared with ECG of 27-FEB-2018 18:20, Vent. rate has decreased BY 31 BPM Confirmed by Dru Gonzalez ([id number]) on 02/28/2018 7:47:09 AM Referred By: Confirmed By:Dru Walters
--- NOTE | 2018-03-01 15:05 | RT HOLTER TEST ---
FACILITY: [facility] PATIENT NAME: LUCIO AQUINO : [id number] MR: [id number] V: [id number] EXAM DATE: ORDERING PHYSICIAN: PENNIE ALCANTAR TECHNOLOGIST: Daryl Griffin-up date: 2018-02-27 22:58:00 Duration: 34:23:00 Test Indications: Chest Pain Medications: Plavix Lisinopril [id number] QRS complexes 11 Ventricular ectopics which represent <1 % of total QRS comp. 491 Supraventricular ectopics which represent <1 % of total QRS comp. * Paced QRS complexes which represent % of total QRS comp. VENTRICULAR ECTOPY 11 Isolated 0 Bigeminal Cycles 0 Couplets 0 Runs 0 Beats in Runs * Beats LONGEST at * BPM at :: -- * Beats FASTEST at * BPM at :: -- SUPRAVENTRICULAR ECTOPY 398 Isolated 23 Couplets 10 Runs 47 Beats in Runs 8 Beats LONGEST at 119 BPM at 01:05:34 2018-02-28 7 Beats FASTEST at 182 BPM at 21:34:59 2018-02-28 HEART RATES 42 MIN at 07:48:40 2018-02-28 63 AVG 117 MAX at 18:38:33 2018-02-28 LONGEST RR 1.632 secs at 05:47:45 2018-03-01 S-T LEVELS Channel 1 -12.800 mm MIN at 22:58:00 2018-02-27 -12.800 mm MAX at 22:58:00 2018-02-27 Channel 2 -12.800 mm MIN at 22:58:00 2018-02-27 -12.800 mm MAX at 22:58:00 2018-02-27 Channel 3 -12.800 mm MIN at 22:58:00 2018-02-27 -12.800 mm MAX at 22:58:00 2018-02-27 Rare ventricular ectopy. No couplets, triplets, or runs. Occasional supraventricular ectopy with several couplets and short runs of non-sustained supraventric ular tachycardia. No pauses were recorded. Confirmed by LISETTE MENDOZA ([id number]) on 03/01/2018 3:05:15 PM Referred By: Overread By: LISETTE MENDOZA
== END 2018-02-27 23:18 | disposition home or self-care (01) ==
LOC: ER 18:37
DX: R07.9 Chest pain, unspecified (principal)
CPT/HCPCS: 36415; 71046; 84484; 85025; 93005; 93225; 96360; 96361; 99284; A9270; J7040; 82040; 82247; 82310; 82374; 82435; 82565; 82947; 84075; 84132; 84155; 84295; 84450; 84460; 84520

== ENCOUNTER 2018-03-02 20:07 | Emergency (ER) | payer MEDICARE, OTHER ==
[2014-06-02 09:06] VITALS: Wt 72.6 kg
--- NOTE | 2018-03-02 20:11 | ER Report ---
History and Physical Time Seen By MD: 20:11 HPI/ROS CHIEF COMPLAINT: Chest pain HISTORY OF PRESENT ILLNESS: 87-year-old female with a history of coronary artery disease, status post a OK and stent placement 4 proximally 10 months ago. Patient was seen here in the ER 2 days ago with chest pain. Her evaluation was unremarkable for EKG and troponin 2. She also has a recent Holter monitor for suspected SVT. Altered monitor was unremarkable. Those results were unremarkable for dysrhythmias. Patient tonight while vacuuming developed some chest discomfort. She describes chest tightness and burning without radiation, patient denies diaphoresis, shortness of breath or nausea. Patient's symptoms resolved with rest spontaneously. REVIEW OF SYSTEMS: Respiratory: No cough, no dyspnea. Cardiovascular: As above Gastrointestinal: No vomiting, no abdominal pain. Musculoskeletal: No back pain. Allergies: Coded Allergies: Penicillins (Verified Allergy, Mild, 02/27/18) Sulfa (Sulfonamide Antibiotics) (Verified Allergy, Mild, 02/27/18) codeine (Verified Allergy, Mild, 02/27/18) iodine (Verified Allergy, Mild, 02/27/18) Uncoded Allergies: NARCOTICS (Adverse Reaction, Unknown, 02/27/18) Home Meds Active Scripts Atorvastatin Calcium (ATORVASTATIN CALCIUM) 40 Mg Tablet, 1 TAB PO HS, #30 TAB Prov:ADRIANA DERAS MD 08/25/17 Mirtazapine (MIRTAZAPINE) 15 Mg Tablet, 0.25 TAB PO QHS for 90 Days, #45 TAB Prov:ADRIANA DERAS MD 08/03/17 Lisinopril (LISINOPRIL) 2.5 Mg Tablet, 1 TAB PO DAILY, #90 TAB 4 Refills Prov:ADRIANA DERAS MD 04/04/17 Reported Medications Cyanocobalamin (Vitamin B-12) (VITAMIN B-12) 1,000 Mcg Tablet, 1 TAB PO DAILY 08/02/17 Clopidogrel Bisulfate (PLAVIX) 75 Mg Tablet, 1 TAB PO QDAY, TAB 08/02/17 Metformin Hcl (METFORMIN HCL) 500 Mg Tablet, 0.5 TAB PO DAILY 08/02/17 Aspirin (ASPIRIN) 81 Mg Tab.chew, 1 TAB.CHEW PO QDAY 08/02/17 Citalopram Hydrobromide (CITALOPRAM HBR) 40 Mg Tablet, 0.5 TAB PO DAILY 04/01/17 Cholecalciferol (Vitamin D3) (VITAMIN D) 400 Unit Capsule, 500 UNIT PO DAILY, CAPSULE 02/24/17 Acetaminophen (TYLENOL EXTRA STRENGTH) 500 Mg Tablet, 1 TAB PO HS PRN for PAIN 02/24/17 Risedronate Sodium (Risedronate Sodium) 150 Mg Tablet, 1 TAB PO Q4WK 02/24/17 Calcium Carbonate/Vitamin D3 (Caltrate 600 + D Soft Chew Tab) 1 Each Tab.chew 03/09/15 Abatacept (ORENCIA) 125 Mg/1 Ml Disp.syrin, 125 MG SQ monthly 06/04/14 Primidone (Primidone) 50 Mg Tablet, 1 TAB PO QHS 03/07/12 Folic Acid (Folic Acid) 1 Mg Tab, 0.4 MG PO QDAY, 0 Refills 10/26/10 Levothyroxine Sodium (Synthroid) 0.075 Mg Tab, 1 TAB PO DAILY 10/26/10 Reviewed Nurses Notes: Yes Old Medical Records Reviewed: Yes Hx Smoking: No Smoking Status: Never Smoker Exposure to Second Hand Smoke?: No Hx Substance Use Disorder: No Hx Alcohol Use: No Constitutional Vital Sign - Last 24 Hours 03/02/18 03/02/18 03/02/18 03/02/18 20:10 20:12 20:22 20:25 Temp 98.5 Pulse 73 68 Resp 16 14 B/P (MAP) 174/108 174/108 (130) 144/70 (94) Pulse Ox 88 95 O2 Delivery Room Air 03/02/18 03/02/18 03/02/18 03/02/18 20:30 20:37 20:52 21:00 Pulse 59 52 Resp 27 15 B/P (MAP) 141/83 (102) 139/70 (93) Pulse Ox 95 95 03/02/18 03/02/18 03/02/18 03/02/18 21:07 21:22 21:27 21:42 Pulse 65 75 74 50 Resp 24 38 15 21 Pulse Ox 95 94 93 95 03/02/18 03/02/18 03/02/18 03/02/18 21:47 21:57 22:00 22:02 Pulse 48 Resp 12 B/P (MAP) 136/121 (126) 138/55 (82) Pulse Ox 95 O2 Flow Rate 2.0 03/02/18 22:12 Resp 14 Pulse Ox 96 Physical Exam Vital signs stable, afebrile, blood pressure elevated, pulse ox normal General Appearance: The patient is alert, has no immediate need for airway protection and no current signs of toxicity. No acute distress, skin warm, dry, pink HEENT: Pupils equal and round no injection., Oropharynx without redness or exudate, mucous. Membranes are moist Respiratory: Chest is non tender, lungs are clear to auscultation. No chest wall tenderness Cardiac: regular rate and rhythm, no murmur Gastrointestinal: Abdomen is soft and non tender, no masses, bowel sounds normal. Musculoskeletal: Neck: Neck is supple and non tender. No JVD, no lymphadenopathy Extremities have full range of motion and are non tender. No edema, no calf tenderness Skin: No rashes or lesions. [ ] DIFFERENTIAL DIAGNOSIS: After history and physical exam differential diagnosis was considered for chest pain including but not limited to myocardial ischemia, pericarditis pulmonary embolus, chest wall pain, pleural inflammation and pulmonary infectious causes. Medical Decision Making Data Points Result Diagram: 03/02/18213303/02/185 Laboratory Hematology Test 03/02/18 21:05 03/02/18 21:34 Sodium Level 136 mmol/L (137-145) Potassium Level 4.5 mmol/L (3.5-5.0) Chloride Level 100 mmol/L (98-107) Carbon Dioxide Level 28 mmol/L (22-31) Blood Urea Nitrogen 25 mg/dl (7-18) Creatinine 0.70 mg/dl (0.52-1.04) Glomerular Filtration Rate Calc > 60.0 Random Glucose 122 mg/dl (75-110) Calcium Level 9.6 mg/dl (8.4-10.2) Total Bilirubin 0.2 mg/dl (0.2-1.3) Aspartate Amino Transf (AST/SGOT) 27 U/L (0-35) Alanine Aminotransferase (ALT/SGPT) 27 U/L (0-56) Alkaline Phosphatase 51 U/L (0-126) Troponin I < 0.012 ng/ml Total Protein 6.1 g/dl (6.3-8.2) Albumin 3.7 g/dl (3.5-5.0) Red Blood Count 4.74 M/uL (4.17-5.56) Mean Corpuscular Volume 84.8 fL (80.0-96.0) Mean Corpuscular Hemoglobin 29.4 pg (26.0-33.0) Mean Corpuscular Hemoglobin Concent 34.7 g/dL (32.0-36.0) Red Cell Distribution Width 19.2 % (11.5-14.5) Mean Platelet Volume 7.2 fL (7.2-11.1) Neutrophils (%) (Auto) 50.5 % (39.4-72.5) Lymphocytes (%) (Auto) 35.5 % (17.6-49.6) Monocytes (%) (Auto) 10.5 % (4.1-12.4) Eosinophils (%) (Auto) 2.4 % (0.4-6.7) Basophils (%) (Auto) 1.1 % (0.3-1.4) Nucleated RBC Relative Count (auto) 0.0 /100WBC Neutrophils # (Auto) 2.5 K/uL (2.0-7.4) Lymphocytes # (Auto) 1.8 K/uL (1.3-3.6) Monocytes # (Auto) 0.5 K/uL (0.3-1.0) Eosinophils # (Auto) 0.1 K/uL (0.0-0.5) Basophils # (Auto) 0.1 K/uL (0.0-0.1) Nucleated RBC Absolute Count (auto) 0.00 K/uL B-Type Natriuretic Peptide 99 pg/ml (0-100) Chemistry Test 03/02/18 21:05 03/02/18 21:34 Glomerular Filtration Rate Calc > 60.0 Calcium Level 9.6 mg/dl (8.4-10.2) Total Bilirubin 0.2 mg/dl (0.2-1.3) Aspartate Amino Transf (AST/SGOT) 27 U/L (0-35) Alanine Aminotransferase (ALT/SGPT) 27 U/L (0-56) Alkaline Phosphatase 51 U/L (0-126) Troponin I < 0.012 ng/ml Total Protein 6.1 g/dl (6.3-8.2) Albumin 3.7 g/dl (3.5-5.0) White Blood Count 5.0 k/uL (4.5-11.0) Red Blood Count 4.74 M/uL (4.17-5.56) Hemoglobin 13.9 g/dL (12.0-16.0) Hematocrit 40.2 % (34.0-47.0) Mean Corpuscular Volume 84.8 fL (80.0-96.0) Mean Corpuscular Hemoglobin 29.4 pg (26.0-33.0) Mean Corpuscular Hemoglobin Concent 34.7 g/dL (32.0-36.0) Red Cell Distribution Width 19.2 % (11.5-14.5) Platelet Count 253 K/uL (150-450) Mean Platelet Volume 7.2 fL (7.2-11.1) Neutrophils (%) (Auto) 50.5 % (39.4-72.5) Lymphocytes (%) (Auto) 35.5 % (17.6-49.6) Monocytes (%) (Auto) 10.5 % (4.1-12.4) Eosinophils (%) (Auto) 2.4 % (0.4-6.7) Basophils (%) (Auto) 1.1 % (0.3-1.4) Nucleated RBC Relative Count (auto) 0.0 /100WBC Neutrophils # (Auto) 2.5 K/uL (2.0-7.4) Lymphocytes # (Auto) 1.8 K/uL (1.3-3.6) Monocytes # (Auto) 0.5 K/uL (0.3-1.0) Eosinophils # (Auto) 0.1 K/uL (0.0-0.5) Basophils # (Auto) 0.1 K/uL (0.0-0.1) Nucleated RBC Absolute Count (auto) 0.00 K/uL B-Type Natriuretic Peptide 99 pg/ml (0-100) EKG/Imaging EKG Interpretation 12 lead EK Rhythm: Sinus bradycardia, 57 bpm Unity: normal QRS: normal ST segments: normal, comparison to previous EKG dated 02/27/18, no significant change was in bradycardia at 58 bpm Imaging Repeat chest x-ray ordered. Single view portable patient refused since she had a chest x-ray 3 days ago. ED Course/Re-evaluation Clinical Indication for ER IV: IV Access ED Course Patient was admitted to an examination room. H&P was done. The differential diagnoses was considered. Patient with chest pain. Her EKG is unchanged from previous EKG from 3 days ago. Diagnostic studies show normal troponin, BMP. Patient was not medicated for since her pain resolved spontaneously. She did get a mild repeat twinge of pain which resolved spontaneously without treatment. After several minutes. I do not think a serial troponin will be of any cli nical utility. Patient has no signs of pulmonary embolism. Patient's reassured that her symptoms are likely not related to her heart. Patient advised to follow-up with her primary care and bull riveter. She states her appointment with Dr. Prakash is 03/24/18. I advised that she moved up the appointment to his soon as possible. She's also advised to follow-up with Dr. Romero in the next few days. Decision to Disposition Date: Mar 02, 2018 Decision to Disposition Time: 20:46 Depart Departure Latest Vital Signs Vital Signs Date Time Temp Pulse Resp B/P (MAP) Pulse Ox O2 Delivery O2 Flow Rate FiO2 03/02/18 22:12 14 96 03/02/18 22:02 138/55 (82) 03/02/18 21:57 48 03/02/18 21:47 2.0 03/02/18 20:10 98.5 Room Air Impression: Primary Impression: Chest pain of unknown etiology Additional Impressions: Sinus bradycardia History of coronary artery disease Status post coronary artery stent placement Condition: Improved Disposition: HOME OR SELF-CARE Referrals: EUFEMIA ROMERO DO (PCP) Patient Instructions: Chest Pain (ED) Additional Instructions: Follow-up with your primary doctor Dr Deras next week and Dr. Prakash cardiology as planned Problem Qualifiers JAIME ROBERT DO Mar 02, 2018 20:11
--- NOTE | 2018-03-02 20:42 | EKG ---
FACILITY: [facility] PATIENT NAME: LUCIO AQUINO : [id number] MR: [id number] V: [id number] EXAM DATE: ORDERING PHYSICIAN: JAIME ROBERT TECHNOLOGIST: JUMA Mathur Reason : CP Blood Pressure : / mmHG Vent. Rate : 057 BPM Atrial Rate : 057 BPM P-R Int : 150 ms QRS Dur : 076 ms QT Int : 422 ms P-R-T Axes : 064 064 052 degrees QTc Int : 410 ms Sinus bradycardia Otherwise normal ECG When compared with ECG of 27-FEB-2018 20:42, No significant change was found Confirmed by Dru Gonzalez ([id number]) on 03/02/2018 10:56:54 PM Referred By: Confirmed By:Dru Walters
[2018-03-02 21:39] LABS: PLATELET COUNT, AUTOMATED 253 K/uL (150-450)
[2018-03-02 22:02] VITALS: BP 138/55
== END 2018-03-02 22:16 | disposition home or self-care (01) ==
LOC: ER 20:18
DX: R07.9 Chest pain, unspecified (principal); R00.1 Bradycardia, unspecified; I25.10 Atherosclerotic heart disease of native coronary artery without angina pectoris
CPT/HCPCS: 82040; 82247; 82310; 82374; 82435; 82565; 82947; 83880; 84075; 84132; 84155; 84295; 84450; 84460; 84484; 84520; 85025; 93005; 99283

== ENCOUNTER 2018-03-14 12:52 | Outpatient (RCR) | payer MEDICARE, OTHER ==
[2014-06-02 09:06] VITALS: BMI 27.6
[2017-12-20 13:03] VITALS: BP 129/50
[2017-12-20 13:17] LABS: PLATELET COUNT, AUTOMATED 235 K/uL (150-450)
[2017-12-20] MEDS: LIDOCAINE/SOD BICARB 8.4% SYR ID PRN (13:36)
[2017-12-20] MEDS: NS(*) 0.9% 100 ML BAG 100 ML IVPB PRN (13:36)
[2017-12-20 14:12] VITALS: BP 125/54
[2018-01-17] MEDS: LIDOCAINE/SOD BICARB 8.4% SYR ID PRN (13:00)
[2018-01-17 13:17] VITALS: BP 110/74
[2018-01-17 13:21] LABS: PLATELET COUNT, AUTOMATED 283 K/uL (150-450)
[2018-01-17 14:28] VITALS: BP 131/66
[2018-02-14 13:00] VITALS: BP 134/63
[2018-02-14 13:05] LABS: PLATELET COUNT, AUTOMATED 316 K/uL (150-450)
[2018-02-14] MEDS: NS(*) 0.9% 100 ML BAG 100 ML IVPB PRN (13:30)
[2018-02-14] MEDS: LIDOCAINE/SOD BICARB 8.4% SYR ID PRN (13:30)
[~2018-03-14 12:52] MED LIST changes: +ABATACEPT 250 MG SDV 750 MG in NS(*) 0.9% 100 ML BAG 100 ML IVPB ONE; +DEXTROSE 5%(*) 100 ML BAG 100 ML IVPB PRN; -METF-411 PO; +METF-450 PO
[2018-03-14 13:01] VITALS: BP 140/81
[2018-03-14 13:25] LABS: PLATELET COUNT, AUTOMATED 278 K/uL (150-450)
[2018-03-14] MEDS ORDERED: ABATACEPT 250 MG SDV 750 MG in NS(*) 0.9% 100 ML BAG 100 ML IVPB ONE (13:45)
[2018-03-14] MEDS: LIDOCAINE/SOD BICARB 8.4% SYR ID PRN (13:56)
[2018-03-14] MEDS: NS(*) 0.9% 100 ML BAG 100 ML IVPB PRN (13:56)
== END 2018-03-19 ==
LOC: SPU 12:52
PROVIDERS: ATTEND Family Medicine
DX: M06.9 Rheumatoid arthritis, unspecified (principal)
CPT/HCPCS: 85025; 85651; 96365; J0129; J7050; 82040; 82247; 82310; 82374; 82435; 82565; 82947; 84075; 84132; 84155; 84295; 84450; 84460; 84520

== ENCOUNTER → 2018-06-14 | Outpatient (CLI) | payer MEDICARE, OTHER ==
[2014-06-02 09:06] VITALS: BMI 27.6
[~2018-06-14] MED LIST changes: -ABATACEPT 250 MG SDV 750 MG in NS(*) 0.9% 100 ML BAG 100 ML IVPB ONE; -DEXTROSE 5%(*) 100 ML BAG 100 ML IVPB PRN
== END ==
LOC: LAB 12:32
PROVIDERS: ATTEND Internal Medicine Cardiovascular Disease
DX: I50.9 Heart failure, unspecified (principal)
CPT/HCPCS: 36415; 81001; 82040; 82247; 82310; 82374; 82435; 82565; 82570; 82947; 83880; 84075; 84132; 84155; 84295; 84450; 84460; 84520

== ENCOUNTER 2018-07-06 12:48 | Outpatient (RCR) | payer MEDICARE, OTHER ==
[2014-06-02 09:06] VITALS: BMI 27.6
[2018-04-11 13:04] VITALS: BP 126/76
[2018-04-11 13:18] LABS: PLATELET COUNT, AUTOMATED 263 K/uL (150-450)
[2018-04-11] MEDS: LIDOCAINE/SOD BICARB 8.4% SYR ID PRN (13:30)
[2018-04-11] MEDS: NS(*) 0.9% 100 ML BAG 100 ML IVPB PRN (13:30)
[2018-05-09 13:03] VITALS: BP 145/70
[2018-05-09] MEDS: NS(*) 0.9% 100 ML BAG 100 ML IVPB PRN ×2 (13:30→13:47)
[2018-05-09] MEDS: LIDOCAINE/SOD BICARB 8.4% SYR ID PRN (13:30)
[2018-05-09 13:31] LABS: PLATELET COUNT, AUTOMATED 254 K/uL (150-450)
[2018-05-09 14:35] VITALS: BP 135/72
[2018-06-06 12:54] VITALS: BP 132/60
[2018-06-06] MEDS: NS(*) 0.9% 100 ML BAG 100 ML IVPB PRN (13:18)
[2018-06-06 13:29] LABS: PLATELET COUNT, AUTOMATED 281 K/uL (150-450)
[~2018-07-06 12:48] MED LIST changes: +ABATACEPT 250 MG SDV 750 MG in NS(*) 0.9% 100 ML BAG 100 ML IVPB ONE; +DEXTROSE 5%(*) 100 ML BAG 100 ML IVPB PRN
[2018-07-06 12:53] VITALS: BP 129/61
[2018-07-06 13:09] LABS: PLATELET COUNT, AUTOMATED 300 K/uL (150-450)
[2018-07-06] MEDS: NS(*) 0.9% 100 ML BAG 100 ML IVPB PRN (13:21)
[2018-07-06] MEDS ORDERED: ABATACEPT 250 MG SDV 750 MG in NS(*) 0.9% 100 ML BAG 100 ML IVPB ONE (13:40)
[2018-07-06 14:21] VITALS: BP 119/75
== END 2018-07-09 ==
LOC: SPU 12:48
PROVIDERS: ATTEND Family Medicine
DX: M05.79 Rheumatoid arthritis with rheumatoid factor of multiple sites without organ or systems involvement (principal)
CPT/HCPCS: 85025; 85651; 86140; 96365; J0129; J7050; 82040; 82247; 82310; 82374; 82435; 82565; 82947; 84075; 84132; 84155; 84295; 84450; 84460; 84520

== ENCOUNTER → 2018-07-11 | Outpatient (CLI) | payer MEDICARE, OTHER ==
[2014-06-02 09:06] VITALS: BMI 27.6
[~2018-07-11] MED LIST changes: -ABATACEPT 250 MG SDV 750 MG in NS(*) 0.9% 100 ML BAG 100 ML IVPB ONE; -DEXTROSE 5%(*) 100 ML BAG 100 ML IVPB PRN
== END ==
LOC: US 00:56
PROVIDERS: ATTEND Internal Medicine Cardiovascular Disease
DX: I50.42 Chronic combined systolic (congestive) and diastolic (congestive) heart failure (principal); I35.0 Nonrheumatic aortic (valve) stenosis
CPT/HCPCS: 93306

== ENCOUNTER → 2018-08-24 | Outpatient (CLI) | payer MEDICARE, OTHER ==
[2014-06-02 09:06] VITALS: BMI 27.6
--- NOTE | 2018-08-24 12:46 | RADIOLOGY IMAGING REPORT ---
FACILITY: [facility] [place] PATIENT NAME: Mindy Goldstein : 1930 MR: [id number] V: [id number] EXAM DATE: ORDERING PHYSICIAN: EUFEMIA ROMERO TECHNOLOGIST: Location: [facility] [place] Patient: Mindy Goldstein : 1930 Visit/Account:[id number] Date of Sevice: 08/24/2018 EXAMINATION: Abdominal ultrasound complete HISTORY: Generalized pain COMPARISON: CT on pelvis July 19, 2009 FINDINGS: Gallbladder: There multiple gallstones present Liver: Negative. Common duct: Normal measuring 3.3 mm. Pancreas: Not well seen due to body habitus and overlying bowel gas Spleen: Normal in size and echogenicity measuring 9.1 cm in length. Kidneys: Multiple small echogenic foci are seen within the kidneys which may represent nonobstructin g stones, the right measures 8.2 cm in length, and the left 9.9 cm. No hydronephrosis. Upper abdominal aorta and IVC: Negative. Ascites: None. IMPRESSION: Cholelithiasis although no evidence of biliary ductal dilatation or positive Phillips sign Multiple small echogenic foci within the kidneys may represent nonobstructing stones Pancreas not well seen due to body habitus and overlying bowel gas Report Dictated By: Alysia Doherty MD at 08/24/2018 12:38 PM Report E-Signed By: Alysia Doherty MD at 08/24/2018 12:41 PM WSN:[email or web address]
== END ==
LOC: US 00:43
PROVIDERS: ATTEND Family Medicine
DX: N20.0 Calculus of kidney (principal); K80.20 Calculus of gallbladder without cholecystitis without obstruction
CPT/HCPCS: 76700

== ENCOUNTER 2018-09-08 13:00 | Outpatient (RCR) | payer MEDICARE, OTHER ==
[2014-06-02 09:06] VITALS: BMI 27.6
--- NOTE | 2018-08-07 17:21 | PT INITIAL EVALUATION ---
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 She developed L crown of head to L shoulder pain and L sided BARAJAS since then, affecting carrying, trying to fall asleep, reading and turning her head L while driving. Neck Disability Index 38% impairment. Pain location is L neck to ear, side of L face and crown of head and described as ache, sometimes ringing in the ears. Pain scale is 5 on a ten point pain scale. Pain is worse with trying to read, lifting bags of groceries, turning her head while driving and better with heat. REHAB PROBLEM LIST: Increased Pain Decreased ROM Decreased Function Decreased Mobility PREVIOUS MEDICAL HISTORY: RA, LBP, vertigo, x3 pelvic fractures, L wrist fracture, NIDDM, head, neck and mouth tremors, 1994 uterine cancer. OCCUPATION: Retired, lives alone, has family in [place]. OBJECTIVE: Posture: Forward head posture, head slightly sidebent L. ROM: AROM cervical spine 75% flexion, extension, rotation L 50%, facet and soft tissue pain, R 75% facet pain. Jaw opening with R C-curve, closing with R C- curve. AROM shoulders flexion R 130 deg., L 120 deg., scaption R 120 deg., L 115 degrees, L shoulder pain. Strength: C5-T1 intact for motor function. Palpation: Painful at B TMJ, L UT< LS, scaleni, biceps long head, high tone L SCM. Short cervical flexors and anterior scaleni have higher tone and won't relax when supine (no tremor). Special Tests: DTR's 1/3 UE's. Mobility: Hypomobile cervical joints, L O/A anterior, A/A rotated L, pain reduced in the cervical spine with distraction. L TMJ is posterior and rotated ER, hypomobile. ASSESSMENT: Mindy Goldstein (Diana) presents with cervical whiplash and derangement of B TMJ. After manual therapy to the L TMJ, it began to track better, but R TMJ subluxes laterally at end ROM closing. is started on jaw AROM tracking, anterior cervical muscle AROM relaxation exercise. Short Term Goals One month: falls asleep without difficulty from neck pain, L cervical rotation driving with neck pain /. Two months: denies cervical pain with house work, driving, carries bags of groceries without shoulder pain. Patient's Goals Drive and fall asleep without neck pain. PLAN: Patient to be seen for Manual Therapy/STM/MET Strengthening/condition Ice/Heat Range of Motion Spinal Stabilization Stretching Electrical Stim Posture/Body mechanics Home Exercise Program 2x/Week for 2 Months Thank you for this referral. If you have any questions, comments, or concerns about this report or plan, please contact me at . [facility]
--- NOTE | 2018-09-08 16:18 | PT PLAN OF CARE ---
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 both met Two months: denies cervical pain with house work, driving, carries bags of groceries without shoulder pain. all three met PATIENT'S GOAL: Drive and fall asleep without neck pain. Both met Patient Compliance: Excellent Prognosis: Excellent Reasons for continuing therapy: S: fell in [place] due to ice, onto hands and knees, making her wrists and knees, R hip sore but not her cervical region. She denies cervical pain, is driving and at night sleeping easily without cervical pain. Neck Disability Index 18%. Posture: Forward head posture, head now midline. ROM: AROM cervical spine 75% flexion, extension, rotation B 75% without facet pain. Jaw opening with R TMP late opening mild click. AROM shoulders flexion B 130 degrees, tight glenohumeral joints. Palpation: Unremarkable about the cervical spine. B biceps tendons sore with palpation. Mobility: Moderately mobile cervical joints. R TMJ mildly hypermobile, L TMJ normal joint mobility. A/P Mindy Goldstein has improved cervical posture, ROM, joint mobility to alleviate pain from her fall in June. I've requested a Rx for gait and balance training due to her falls, which will be a different account. I'll DC cervical PT to HEP. Thank you. KEHINDE
== END 2018-09-08 18:00 | disposition home or self-care (01) ==
LOC: PT 13:00
PROVIDERS: ATTEND Physician Assistant
DX: M54.2 Cervicalgia (principal)
CPT/HCPCS: 97162

== ENCOUNTER 2018-10-03 12:55 | Outpatient (RCR) | payer MEDICARE, OTHER ==
[2014-06-02 09:06] VITALS: BMI 27.6
[2018-08-07 13:17] LABS: PLATELET COUNT, AUTOMATED 286 K/uL (150-450)
[2018-08-07] MEDS: NS(*) 0.9% 100 ML BAG 100 ML IVPB PRN (13:32)
[2018-09-05 13:01] VITALS: BP 146/67
[2018-09-05 13:20] LABS: PLATELET COUNT, AUTOMATED 302 K/uL (150-450)
[2018-09-05] MEDS: NS(*) 0.9% 100 ML BAG 100 ML IVPB PRN (13:44)
[~2018-10-03 12:55] MED LIST changes: +ABATACEPT 250 MG SDV 750 MG in NS(*) 0.9% 100 ML BAG 100 ML IVPB ONE; +DEXTROSE 5%(*) 100 ML BAG 100 ML IVPB PRN; +LIDOCAINE/SOD BICARB 8.4% SYR ID PRN
[2018-10-03 13:08] VITALS: BP 130/65
[2018-10-03 13:34] LABS: PLATELET COUNT, AUTOMATED 283 K/uL (150-450)
[2018-10-03] MEDS: NS(*) 0.9% 100 ML BAG 100 ML IVPB PRN (13:35)
[2018-10-03] MEDS ORDERED: ABATACEPT 250 MG SDV 750 MG in NS(*) 0.9% 100 ML BAG 100 ML IVPB ONE (13:45)
[2018-10-03 14:18] VITALS: BP 120/68
== END 2018-10-31 ==
LOC: SPU 12:55
PROVIDERS: ATTEND Family Medicine
DX: M05.79 Rheumatoid arthritis with rheumatoid factor of multiple sites without organ or systems involvement (principal)
CPT/HCPCS: 85025; 85651; 96365; J0129; J7050; 82040; 82247; 82310; 82374; 82435; 82565; 82947; 84075; 84132; 84155; 84295; 84450; 84460; 84520

== ENCOUNTER 2018-11-02 12:52 | Outpatient (RCR) | payer MEDICARE, OTHER ==
[2014-06-02 09:06] VITALS: BMI 27.6
[2018-11-02 13:06] VITALS: BP 165/69
[2018-11-02] MEDS ORDERED: LIDOCAINE/SOD BICARB 8.4% SYR ID PRN (13:10)
[2018-11-02] MEDS ORDERED: DEXTROSE 5%(*) 100 ML BAG 100 ML IVPB PRN (13:10)
[2018-11-02] MEDS ORDERED: NS(*) 0.9% 100 ML BAG 100 ML IVPB PRN (13:10)
[2018-11-02 13:50] LABS: PLATELET COUNT, AUTOMATED 340 K/uL (150-450)
[2018-11-02] MEDS ORDERED: ABATACEPT 250 MG SDV 750 MG in NS(*) 0.9% 100 ML BAG 100 ML IVPB ONE (14:00)
[2018-11-02 14:35] VITALS: BP 141/61
== END 2018-11-22 11:42 | disposition home or self-care (01) ==
LOC: SPU 12:52
PROVIDERS: ATTEND Family Medicine
DX: M05.79 Rheumatoid arthritis with rheumatoid factor of multiple sites without organ or systems involvement (principal)
CPT/HCPCS: 85025; 85651; 96365; J0129; J7050; 82040; 82247; 82310; 82374; 82435; 82565; 82947; 84075; 84132; 84155; 84295; 84450; 84460; 84520

== ENCOUNTER → 2018-11-02 | Outpatient (CLI) | payer MEDICARE, OTHER ==
[2014-06-02 09:06] VITALS: BMI 27.6
[~2018-11-02] MED LIST changes: -ABATACEPT 250 MG SDV 750 MG in NS(*) 0.9% 100 ML BAG 100 ML IVPB ONE; -DEXTROSE 5%(*) 100 ML BAG 100 ML IVPB PRN; -LIDOCAINE/SOD BICARB 8.4% SYR ID PRN
== END ==
LOC: SPU 13:24
PROVIDERS: ATTEND Family Medicine
DX: M05.79 Rheumatoid arthritis with rheumatoid factor of multiple sites without organ or systems involvement (principal)

== ENCOUNTER → 2018-12-11 | Outpatient (RCR) | payer MEDICARE, OTHER ==
[2014-06-02 09:06] VITALS: BMI 27.6
--- NOTE | 2018-09-12 19:49 | PT INITIAL EVALUATION ---
MEDICAL DIAGNOSIS: Recurrent Falls, Gait and Balance Training TREATMENT DIAGNOSIS: Same, peripheral neuropathy, weakness DATE OF ONSET: 09/05/18 SUBJECTIVE: Mindy Goldstein (Diana) presents to PT for her recurrent falls, the latest one at home, 09/05/18. She had an forward fall 06/23/18 that fractured her face, and altered her balance reactions. She relates she isn't ambulating in the community as much and is more unsteady wtih grocery shopping. Pain location is L-S and described as ache. Pain scale is 3 on a ten point pain scale. Pain is worse with extension and better with sitting. 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 OBJECTIVE: Posture: Steady stance, eyes open, heels 4" apart. ROM: PROM ankle DF 20 deg. B. Hips PROM extension -15 deg. B. Strength: Quads L 43#, R 50#, ankle DF R 4/5, L 5/5, hip flexors 4/5 B. Sensation: Loss of protective sensation, [place] monofilament testing "K" 4.56 plantar feet. Special Tests: Negative head thrust. Mobility: Sit/stand without UE use. Gait: Functional Gait Assessment . weaves R>L with head motion, unable to ambulate >4 steps tandem gait, turns slowly with control, uses stairs with handrail with weak eccentric quad strength. Balance: [place] Balance Assessment 41/56. No single limb support. Foot kinesthetic awareness reduced with tapping steps. LOB laterally with turning, when distracted, no stepping reflex. Ankle strategy, hip strategy and stepping reflexes are absent on firm surfaces. Static stand, eyes shut on foam with increased postural sway. ASSESSMENT: Mindy Goldstein presents with high fall risk from altered vestibular input, peripheral neuropathy and weakness. She did well with static postural control balance exercises today. Short Term Goals/Patient's Goals 1 month: [place] 45/56 to reduce fall risk. 2 months: Normal balance reactions on firm surfaces. 3 months: Long distance community ambulator with normal balance reactions on uneven surfaces. PLAN: Patient to be seen for Strengthening/condition Ice/Heat Range of Motion Stretching Neuromuscular Re-ed Gait Trg/Balance Trg Home Exercise Program 2x/Week for 3 months Thank you for this referral. If you have any questions, comments, or concerns about this report or plan, please contact me at . [facility]
--- NOTE | 2018-10-17 13:00 | PT PLAN OF CARE ---
Physician: Dr. Ivan Douglas Patient is being seen: 2x/week Therapist: Morena Crockett, PT Medical Diagnosis: Recurrent Falls, Gait and Balance Training Treatment Diagnosis: Same, peripheral neuropathy, weakness Date of Onset: 09/05/18 Date of Initial Evaluation: 09/12/18 Date patient was last seen: 10/17/18 Number of treatments: 10 Number of cancellations/No shows: 0 INTERVENTIONS: Strengthening, Neuromuscular Re-ed, Gait Trg/Balance Trg, Home Exercise Program GOALS/PATIENT'S GOAL: 1 month: [place] 45/56 to reduce fall risk. met 2 months: Normal balance reactions on firm surfaces. progressing 3 months: Long distance community ambulator with normal balance reactions on uneven surfaces. not met Patient Compliance: Excellent Prognosis: Excellent Reasons for continuing therapy: S: denies falls, but reports turning onto L side in bed causes seconds of spinning vertigo. O: Special test: Positive L Hallpike for upbeating torsional nystagmus, 5 second latency. Eye tracking with L eye slow to track to the lower L visual field. Strength: Quads L improved to 55#, R remains 50#, ankle DF R now 5/5, L remains 5/5, hip flexors improved to 4+/5 B. Gait: Functional Gait Assessment has reduced from 22 to 21/30, a 30% impairment with weaving L gait with eyes shut, change of gait ambulating backwards, 4 steps with tandem gait. Balance: [place] Balance Assessment improved to 49, normal fall risk, 13% impairment. Mobility: Sit/stand without UE use. A/P: Mindy Goldstein has improved proprioceptive balance but has L BPPV affecting balance involving the vestibular system. I did the Shannon's maneuver for canalith repositioning of the L posterior canal and hope this will improve vestibular balance, with vestibular PT training. I asked her to check with her nutrition and dietetics instructor, Dr. Lopez about her eye tracking. If you agree, we'll continue PT with more vestibular up-training with balance, strengthen her quads more for gait stability and reduced fall risk, 2x/week 2.5 months. Thank you. KEHINDE
--- NOTE | 2018-11-24 15:19 | PT PLAN OF CARE ---
Physician: Dr. Ivan Douglas Patient is being seen: 2x/week Therapist: Morena Crockett, PT Medical Diagnosis: Recurrent Falls, Gait and Balance Training Treatment Diagnosis: Same, peripheral neuropathy, weakness Date of Onset: 09/05/18 Date of Initial Evaluation: 09/12/18 Date patient was last seen: 11/21/18 Number of treatments: 15 Number of cancellations/No shows: 1 INTERVENTIONS: Strengthening, Gait Trg/Balance Trg, Home Exercise Program GOALS/PATIENT'S GOAL: 1 month: [place] 45/56 to reduce fall risk. met 2 months: Normal balance reactions on firm surfaces. met 3 months: Long distance community ambulator with normal balance reactions on uneven surfaces. met Patient Compliance: Excellent Prognosis: Excellent Reasons for discontinuing therapy: S: reports she's more steady with ambulation. She denies falls. Posture: Steady stance, eyes shut, heels 4" apart. Gait: ambulates with heel strike to toe off, steady, slow cadance (limited community ambulator speed), turns with control. She is able to ambulate with head motion with normal line of progression. Balance: [place] Balance Assessment 50/56, a normal fall risk, an 11% impairment. She demonstrates corrective balance reactions on firm and uneven surfaces. Mobility: Sit/stand without UE use. A/P: Mindy Goldstein has improved her vestibular integration and balance, gait. I'll DC PT to HEP. Thank you. KEHINDE
--- NOTE | 2018-11-28 13:06 | PT INITIAL EVALUATION ---
MEDICAL DIAGNOSIS: L rotator cuff tendinitis M67.814, L lateral epicondylitis M77.12 TREATMENT DIAGNOSIS: Same DATE OF ONSET: 10/02/18 SUBJECTIVE: Mindy Goldstein (Diana) presents to PT for L rotator cuff tendinitis and lateral epicondylitis, insidious onset two months ago. She's right-handed. Quick DASH 28% impairment. She states her hands go numb at times, unsure why. Pain location is L anterior and lateral shoulder, lateral epicondyle and described as ache. Pain scale is 0 on a ten point pain scale. Pain is worse with lifting, carrying, reading and better with heat. REHAB PROBLEM LIST: Increased Pain, Decreased ROM, Strength, Carrying, lifting tolerance PREVIOUS MEDICAL HISTORY: RA, DM, tremors, HTN, thyroid disorder, cholecystectomy< L wrist and x3 pelvic fracture, R TKA, RA, CPAP, LBP OCCUPATION: Retired, lives alone. recently finished balance and gait training with nd OBJECTIVE: Posture: Depressed and protracted L shoulder, forward head posture. ROM: L shoulder A/PROM 140/175 flexion, 135/165 deg. abd., ER 80/90 deg., IR L- S/40 degrees. L elbow AROM WNL. L wrist UD with RA changes. Strength: L rotator cuff, biceps 5/5, L EDC 5-/5. Sensation: Loss of protective sensation, [place] monofilament testing "K" 4.56 plantar feet. Special Tests: Negative crank, scour, AC joint tests, positive rotator cuff pain with palpation, slightly with resistance. L hand numbness at 20 seconds with Phalen's test, negative R, negative Tinel test at the carpal tunnels, positive L ulnar nerve pain with Tinel tap at the ulnar notch. No epicondyle pain with finger extension resistance. Mobility: Mildly tight L shoulder and elbow joints. Gait: Normal scapulohumeral rhythm. ASSESSMENT: Mindy Goldstein presents with rotator cuff tendinitis, lateral epicondylitis, tightness and mild joint hypomobility, L carpal tunnel symptoms. She had less pain after manual therapy and is started on stretching. Short Term Goals/Patient's Goals 3 weeks: denies L shoulder pain, elbow pain with carrying groceries, lifting. PLAN: Patient to be seen for Manual Therapy/STM/MET Strengthening/condition Ice/Heat Range of Motion Stretching Neuromuscular Re-ed Electrical Stim Gait Trg/Balance Trg Home Exercise Program 2x/Week for 3 weeks Thank you for this referral. If you have any questions, comments, or concerns about this report or plan, please contact me at . Dr. Tiburcio Cardona date MTDCa
[~2018-12-11] MED LIST changes: -OMEP-125 PO; +OMEP-126 PO
== END ==
LOC: PT 09-12 10:00
PROVIDERS: ATTEND Family Medicine
DX: R29.6 Repeated falls (principal); R26.89 Other abnormalities of gait and mobility; R53.1 Weakness; G62.9 Polyneuropathy, unspecified
CPT/HCPCS: 97010; 97110; 97112; 97116; 97140; 97161; 97162; G0283

== ENCOUNTER 2018-12-15 10:19 | Outpatient (RCR) | payer MEDICARE, OTHER ==
[2014-06-02 09:06] VITALS: BMI 27.6
--- NOTE | 2018-12-15 11:08 | PT PLAN OF CARE ---
Physician: Dr. Tiburcio Cardona Patient is being seen: 2x/week Therapist: Morena Crockett, PT Medical Diagnosis: L rotator cuff tendinitis M67.814, L lateral epicondylitis M77.12 Treatment Diagnosis: Same Date of Onset: 10/02/18 Date of Initial Evaluation: 11/28/18 Date patient was last seen: 12/15/18 Number of treatments: 6 Number of cancellations/No shows: 0 INTERVENTIONS: Manual Therapy, Strengthening/condition, Heat, Range of Motion/Stretching, Electrical Stim, HEP GOALS/PATIENT'S GOAL: 3 weeks: denies L shoulder pain, elbow pain with carrying groceries, lifting. all met Patient Compliance: Excellent Prognosis: Excellent Reasons for discontinuing therapy: S: denies L shoulder and L elbow pain with carrying groceries, lifting. Quick DASH 20%, worst is trying to open tight jars. 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 Posture: Even shoulders. ROM: L shoulder A/PROM WFL/WFL, pain free. Strength: L rotator cuff, biceps 5/5, L EDC improved to 5/5. Palpation: Tender lateral epicondyle, otherwise unremarkable about aliza L shoulder and elbow. A/P: Mindy Goldstein has improved ROM, resolved pain and is back to carrying, lifting without L UE pain. I provided some handouts for different jar openers. I'll DC PT to HEP. Thank you. KEHINDE
== END 2018-12-15 18:00 | disposition home or self-care (01) ==
LOC: PT 10:19
PROVIDERS: ATTEND Family Medicine
DX: R29.6 Repeated falls (principal); R26.89 Other abnormalities of gait and mobility; R53.1 Weakness; G62.9 Polyneuropathy, unspecified

== ENCOUNTER 2018-12-26 13:00 | Outpatient (RCR) | payer MEDICARE, OTHER ==
[2014-06-02 09:06] VITALS: BMI 27.6
[2018-11-28 12:48] VITALS: BP 146/60
[2018-11-28 13:12] LABS: PLATELET COUNT, AUTOMATED 340 K/uL (150-450)
[~2018-12-26 13:00] MED LIST changes: +ABATACEPT 250 MG SDV 750 MG in NS(*) 0.9% 100 ML BAG 100 ML IVPB ONE; +DEXTROSE 5%(*) 100 ML BAG 100 ML IVPB PRN; +LIDOCAINE/SOD BICARB 8.4% SYR ID PRN; +NS(*) 0.9% 100 ML BAG 100 ML IVPB PRN
[2018-12-26 13:56] VITALS: BP 126/77
[2018-12-26 13:59] LABS: PLATELET COUNT, AUTOMATED 267 K/uL (150-450)
[2018-12-26] MEDS ORDERED: ABATACEPT 250 MG SDV 750 MG in NS(*) 0.9% 100 ML BAG 100 ML IVPB ONE (14:30)
[2018-12-26 14:48] VITALS: BP 117/68
== END 2019-01-17 14:56 | disposition home or self-care (01) ==
LOC: SPU 13:00
PROVIDERS: ATTEND Family Medicine
DX: M05.79 Rheumatoid arthritis with rheumatoid factor of multiple sites without organ or systems involvement (principal)
CPT/HCPCS: 36415; 82565; 84450; 85025; 85651; 96365; J0129; J7050; 82040; 82247; 82310; 82374; 82435; 82947; 84075; 84132; 84155; 84295; 84460; 84520

== ENCOUNTER → 2019-02-07 | Outpatient (CLI) | payer MEDICARE, OTHER ==
[2014-06-02 09:06] VITALS: BMI 27.6
[~2019-02-07] MED LIST changes: -ABATACEPT 250 MG SDV 750 MG in NS(*) 0.9% 100 ML BAG 100 ML IVPB ONE; -DEXTROSE 5%(*) 100 ML BAG 100 ML IVPB PRN; -LIDOCAINE/SOD BICARB 8.4% SYR ID PRN; -NS(*) 0.9% 100 ML BAG 100 ML IVPB PRN
== END ==
LOC: RESP 02:04
PROVIDERS: ATTEND Internal Medicine Cardiovascular Disease
DX: Z02.9 Encounter for administrative examinations, unspecified (principal)